=== PATIENT | female | born 1995 | race Caucasian/White ===

== ENCOUNTER → 2016-11-04 | Outpatient (REF) | payer MEDICAID ==
[2016-11-04 15:18] LABS: PERCENT SATURATION 5.9 % (13.2-37.4)
[2016-11-06 14:15] LABS: HEMOGLOBIN A 97.9 % (94.0-98.0)
== END ==
LOC: M LAB REF 14:07
PROVIDERS: ATTEND Internal Medicine Medical Oncology
DX: D64.9 Anemia, unspecified (principal)

== ENCOUNTER 2017-09-12 22:39 | Emergency (ER) | payer MEDICAID, SELFPAY, OTHER ==
[2017-09-13] MEDS: CEPHALEXIN 500 MG CAP PO (00:48)
[2017-09-13] MEDS: LIDOCAINE 2% MDV 20 ML VIAL SC (00:48)
== END 2017-09-13 02:18 | disposition home or self-care (01) ==
LOC: M ED 22:39
DX: S61.012A Laceration without foreign body of left thumb without damage to nail, initial encounter (principal); W26.0XXA Contact with knife, initial encounter; Y92.018 Other place in single-family (private) house as the place of occurrence of the external cause; Z79.899 Other long term (current) drug therapy; Z79.890 Hormone replacement therapy; F17.210 Nicotine dependence, cigarettes, uncomplicated
CPT/HCPCS: 12002

== ENCOUNTER 2020-04-19 17:36 | Emergency (ER) | payer MEDICAID, OTHER ==
[~2020-04-19] VITALS: Ht 172.7 cm; Wt 140.9 kg
[~2020-04-19 17:36] MED LIST: DEBL1TAB PO; KEFL500C17 PO; LEVO100T5 PO
[2020-04-19] MEDS ORDERED: LISI-538 PO (17:57)
[2020-04-19 19:19] VITALS: BP 139/74
== END 2020-04-19 19:52 | disposition home or self-care (01) ==
LOC: M ED 17:36
DX: K42.9 Umbilical hernia without obstruction or gangrene (principal); I10 Essential (primary) hypertension; E03.9 Hypothyroidism, unspecified; D50.9 Iron deficiency anemia, unspecified; F41.9 Anxiety disorder, unspecified; F32.9 Major depressive disorder, single episode, unspecified; F17.200 Nicotine dependence, unspecified, uncomplicated; F12.20 Cannabis dependence, uncomplicated; Z90.49 Acquired absence of other specified parts of digestive tract; Z88.0 Allergy status to penicillin; Z88.1 Allergy status to other antibiotic agents; Z88.2 Allergy status to sulfonamides; Z79.899 Other long term (current) drug therapy